=== PATIENT | female | born 1930 | race Caucasian/White ===

== ENCOUNTER 2019-10-30 11:26 | Emergency (ER) | payer BC, MEDICARE, OTHER ==
[~2019-10-30] VITALS: Ht 154.9 cm; Wt 55.0 kg
[2019-10-30] MEDS ORDERED: LISI1TAB32 PO (13:58)
[2019-10-30 14:03] LABS: ALBUMIN 3.4 G/DL (3.4-5.0); ANION GAP 9 (8-16); BLOOD UREA NITROGEN 18 MG/DL (7-18); BUN/CREATININE RATIO 19.4 (6.6-38.0); CHLORIDE 103 MMOL/L (99-107); CREATININE 0.93 MG/DL (0.40-0.90); GLUCOSE 180 MG/DL (70-104); POTASSIUM 4.1 MMOL/L (3.5-5.1); SODIUM 142 MMOL/L (135-145); eGFR 57 ML/MIN
[2019-10-30 14:25] VITALS: BP 179/81
== END 2019-10-30 14:27 | disposition home or self-care (01) ==
LOC: ER 11:26
DX: I10 Essential (primary) hypertension (principal); E11.9 Type 2 diabetes mellitus without complications; M81.8 Other osteoporosis without current pathological fracture; Z79.899 Other long term (current) drug therapy
CPT/HCPCS: 36415; 80048; 99284